=== PATIENT | female | born 1950 | race African-American/Black ===

== ENCOUNTER 2017-10-04 17:13 | Inpatient (IN) | payer MEDICAID ==
[~2017-10-04] VITALS: Ht 162.6 cm; Wt 56.4 kg
[2017-10-04] MEDS: traZODone 50 MG TAB PO SCH (00:20)
[~2017-10-04 17:13] MED LIST: ACET-2619 PO; ACET-8386 PO; ALPR0.5T2 PO; ASCO500T45 PO; ASPI325E46 PO; ASPI81EC97 PO; ATRN INH; Acetaminophen PO; BACTO TOP; CARI350T34 PO; COL250 PO; CYPR4TAB PO; DIAZ5TAB13 PO; Dressing, Gauze TP; ELA50 PO; FAMO-90 PO; FERR-193 PO; FOLI1TAB19 PO; IPRA3AMP IH; LEVO5SOL4 IV; MSCON15 PO; ONDA2SOL80 IVP; OXYC1TAB PO; PRAV20TA2 PO; PYRI25TA4 PO; PZA500 PO; SIMV10TA6 PO
[2017-10-04 17:14] VITALS: BP 116/72
--- NOTE | 2017-10-04 17:23 | NUR ---
PT TAKEN IN WHEELCHAIR TO BED 1
[2017-10-04] MEDS ORDERED: ACETAMIN/CODEINE 120/12MG-5ML 5 ML UDC PO ONE (17:35)
[2017-10-04] MEDS ORDERED: KETOROLAC 30 MG/ML VIAL IVP ONE (17:35)
[2017-10-04] MEDS ORDERED: ALBUTEROL SULFATE/IPRATROPIU 3 ML SOL IH ONE (17:40)
[2017-10-04] MEDS ORDERED: LEVOFLOXACIN 750 MG/D5W PREMIX 150 ML IV ONE (18:20)
[2017-10-04] MEDS: NACL 0.9% 1,000 ML IV SCH (18:22)
[2017-10-04] MEDS ORDERED: ACETAMINOPHEN 325 MG TAB PO PRN (18:25)
[2017-10-04] MEDS ORDERED: NITROGLYCERIN 0.4 MG TAB SL PRN (18:35)
[2017-10-04] MEDS ORDERED: LEVOFLOXACIN 750 MG/D5W PREMIX 150 ML IV SCH (18:35)
[2017-10-04] MEDS ORDERED: ALBUTEROL SULFATE/IPRATROPIU 3 ML SOL IH PRN (18:35)
[2017-10-04] MEDS ORDERED: CLINDAMYCIN 600 MG in DEXTROSE 5% 50 ML IV SCH (18:35)
[2017-10-04 18:46] LABS: BASOPHILS # (AUTO) 0.9 K/uL (0.00-0.22); WHITE BLOOD COUNT (AUTO) 14.4 K/uL (4.8-10.8)
[2017-10-04 18:52] LABS: EOSINOPHILS # (AUTO) 0.3 K/uL (0-0.4); HEMATOCRIT 34.4 % (36-48); HEMOGLOBIN 11.3 g/dL (12.0-16.0); LYMPHOCYTES # (AUTO) 1.5 K/uL (2.5-16.5); MEAN CORPUSCULAR HEMOGLOBIN 30 pg (27-31); MEAN CORPUSCULAR HGB CONC 33 g/dL (33-37); MEAN CORPUSCULAR VOLUME 91 fL (80-94); MONOCYTES # (AUTO) 0.8 K/uL (0.8-1.0); NEUTROPHILS # (AUTO) 10.9 K/uL (1.8-7.7); PLATELET COUNT (AUTO) 275 K/uL (140-450); RED CELL DISTRIBUTION WIDTH 13.1 % (11.6-13.7)
[2017-10-04 19:02] LABS: ALBUMIN 2.7 g/dL (3.4-5.0); ANION GAP 14.3 (8-16); CREATININE 0.8 mg/dL (0.6-1.3); POTASSIUM 3.3 mmol/L (3.5-5.1); TOTAL BILIRUBIN 0.5 mg/dL (0.0-1.0)
--- NOTE | 2017-10-04 19:13 | NUR ---
DR MURPHY AT BEDSIDE AT THIS TIME SPOKE WITH PT AFTER TO TRANSFER TO ROOM O2 AT 88 3L PLACED AT 95 POST N/C
[2017-10-04 19:33] LABS: PROTHROMBIN TIME 12.4 secs (10.8-13.4)
[2017-10-04] MEDS ORDERED: methylPREDNISolone SS 125 MG/2 ML VIAL IVP SCH (19:35)
[2017-10-04] MEDS ORDERED: POTASSIUM CHLORIDE 10 MEQ TABER PO ONE (19:45)
[2017-10-04 19:47] LABS: FREE T4 (FREE THYROXINE) 1.53 ng/dL (0.76-1.46); MAGNESIUM 1.8 mg/dL (1.8-2.4); PHOSPHORUS 2.4 mg/dL (2.5-4.9); THYROID STIMULATING HORMONE 0.75 uIU/mL (0.34-3.74)
--- NOTE | 2017-10-04 20:14 | NUR ---
PT TRANSFERED TO FLOOR AT THIS TIME REPORT OFF TO BETY COSBY IV INTACT FLUSHING WELL WITH LEVAQUIN GOING FLOOR NURSE ALLISON TO START CLEOCIN WELL GIVEN SOLUMEDRAOL. ALSO INFORMED THAT FAMILY CANT REMEMBER ALL MEDICATION AT HOME SON TO BRING DRUG LIST TO FLOOR TONIGHT SO MEDICATION REC NEEDS TO BE COMPLETED.
[2017-10-04 20:15] VITALS: BP 103/83
--- NOTE | 2017-10-04 20:15 | NUR ---
PT CAME IN VIA GURCHANCE, RECEIVED REPORT FROM DAY SHIFT ER NURSE, PT IS A/OX4, ON 3L O2 VIA NASAL CANNULA. 20G IV TO LEFT WRIST. PT AMBULATES AT HOME WITH WALKER. PT HAS ERYTHEMA WITH BUMPS ON LEFT AND RIGHT BUTTOCKS, AND PETECHIAE-LIKE ERYTHEMA AT CHEST, PICTURES TAKEN. MRSA SWAB OBTAINED AND SENT TO LAB. UPDATED BOARD. VITAL SIGNS WITHIN NORMAL LIMITS. PT IN STABLE CONDITION, NO SIGNS OF DISTRESS NOTED. BED IN LOWEST POSITION, CALL LIGHT WITHIN REACH. WILL CONTINUE TO MONITOR.
[2017-10-04] MEDS ORDERED: MAG SULF 2000 MG/WATER PREMIX 50 ML IV SCH (20:20)
[2017-10-04] MEDS ORDERED: POTASSIUM CHLORIDE 10 MEQ TABER PO SCH (20:25)
[2017-10-04] MEDS: ALBUTEROL SULFATE/IPRATROPIU 3 ML SOL IH SCH (20:37)
[2017-10-04] MEDS: ATORVASTATIN 20 MG TAB PO SCH (21:00)
[2017-10-04] MEDS: METOPROLOL 25 MG TAB PO SCH (21:00)
[2017-10-04] MEDS ORDERED: CLINDAMYCIN 600 MG/4 ML VIAL ONE (21:21)
[2017-10-04] MEDS: guaiFENesin 600 MG TABER PO SCH (21:52)
[2017-10-04] MEDS: HYDROcodone/APAP 7.5/325 MG 1 TAB PO PRN (21:54)
[2017-10-04] MEDS: DOCUSATE SODIUM 100 MG GELCAP PO SCH (21:56)
--- NOTE | 2017-10-04 21:56 | NUR ---
ADMINISTERED SCHEDULED MEDICATIONS, NORCO FOR PAIN AND ZOFRAN FOR NAUSEA, PT TOLERATED WELL. PT IN STABLE CONDITION, NO SIGNS OF DISTRESS NOTED. BED IN LOWEST POSITION, CALL LIGHT WITHIN REACH. WILL CONTINUE TO MONITOR.
[2017-10-04] MEDS: ONDANSETRON 4 MG/2 ML VIAL IVP PRN (21:57)
[2017-10-04] MEDS ORDERED: DOCU-299 PO (22:30)
[2017-10-04] MEDS ORDERED: VITD1000 PO (22:30)
[2017-10-04] MEDS ORDERED: MSCON15 PO (22:30)
[2017-10-04] MEDS ORDERED: ELA50 PO ×2 (22:30→22:39)
[2017-10-04] MEDS ORDERED: TRAZ-286 PO (22:38)
[2017-10-05] VITALS: BP 101/55
--- NOTE | 2017-10-05 00:25 | NUR ---
ADMINISTERED SLEEPING MEDICATION, PT TOLERATED WELL. VITAL SIGNS WITHIN NORMAL LIMITS. PT IN STABLE CONDITION, NO SIGNS OF DISTRESS NOTED. BED IN LOWEST POSITION, CALL LIGHT WITHIN REACH. WILL CONTINUE TO MONITOR.
[2017-10-05 04:00] VITALS: BP 105/60
--- NOTE | 2017-10-05 04:00 | NUR ---
VITAL SIGNS WITHIN NORMAL LIMITS. PT IN STABLE CONDITION, NO SIGNS OF DISTRESS NOTED. BED IN LOWEST POSITION, CALL LIGHT WITHIN REACH. WILL CONTINUE TO MONITOR.
[2017-10-05] MEDS: NACL 0.9% 1,000 ML IV SCH ×2 (05:24→20:11)
[2017-10-05] MEDS: ONDANSETRON 4 MG/2 ML VIAL IVP PRN ×3 (05:35→20:57)
[2017-10-05] MEDS: HYDROcodone/APAP 7.5/325 MG 1 TAB PO PRN ×2 (05:35→14:32)
--- NOTE | 2017-10-05 05:35 | NUR ---
ADMINISTERED PAIN AND NAUSEA MEDICATION, PT TOLERATED WELL. PT IN STABLE CONDITION, NO SIGNS OF DISTRESS NOTED. BED IN LOWEST POSITION, CALL LIGHT WITHIN REACH. WILL CONTINUE TO MONITOR.
[2017-10-05] MEDS ORDERED: methylPREDNISolone SS 125 MG/2 ML VIAL IVP SCH ×2 (06:00→07:00)
[2017-10-05] MEDS ORDERED: BENZONATATE 100 MG CAPLF PO PRN (06:05)
[2017-10-05 06:34] LABS: BASOPHILS # (AUTO) 0.1 K/uL (0.00-0.22); BASOPHILS % (AUTO) 0.9 % (0.0-2.0); EOSINOPHILS # (AUTO) 0.1 K/uL (0-0.4); EOSINOPHILS % (AUTO) 0.8 % (0.0-4.0); HEMATOCRIT 34.6 % (36-48); HEMOGLOBIN 11.2 g/dL (12.0-16.0); LYMPHOCYTES # (AUTO) 0.7 K/uL (2.5-16.5); LYMPHOCYTES % (AUTO) 5.4 % (20.5-51.1); MEAN CORPUSCULAR HEMOGLOBIN 30 pg (27-31); MEAN CORPUSCULAR HGB CONC 32 g/dL (33-37); MEAN CORPUSCULAR VOLUME 93 fL (80-94); MONOCYTES # (AUTO) 0.1 K/uL (0.8-1.0); MONOCYTES % (AUTO) 0.4 % (1.7-9.3); NEUTROPHILS # (AUTO) 11.7 K/uL (1.8-7.7); NEUTROPHILS % (AUTO) 92.5 % (42.2-75.2); PLATELET COUNT (AUTO) 263 K/uL (140-450); RED BLOOD CELL COUNT(AUTO) 3.72 MIL/uL (4.20-5.40); RED CELL DISTRIBUTION WIDTH 12.8 % (11.6-13.7); WHITE BLOOD COUNT (AUTO) 12.7 K/uL (4.8-10.8)
[2017-10-05] MEDS: ALBUTEROL SULFATE/IPRATROPIU 3 ML SOL IH SCH ×4 (07:09→22:58)
[2017-10-05 07:13] LABS: ANION GAP 13.3 (8-16); CARBON DIOXIDE 26.6 mmol/L (21-32); CREATININE 0.7 mg/dL (0.6-1.3); POTASSIUM 4.9 mmol/L (3.5-5.1)
[2017-10-05 07:17] LABS: MAGNESIUM 2.5 mg/dL (1.8-2.4); PHOSPHORUS 3.1 mg/dL (2.5-4.9)
--- NOTE | 2017-10-05 07:40 | NUR ---
ENDORSED PT IN STABLE CONDITION TO DAY SHIFT NURSE FOR CONTINUITY OF CARE.
--- NOTE | 2017-10-05 07:41 | NUR ---
RECEIVED REPORT FROM CASEY SAW OPERATOR RN. PATIENT IS AAOX4, NO SIGNS AND SYMPTOMS OF ACUTE RESPIRATORY DISTRESS NOTED AT THIS TIME. HAS NASAL CANNULA AT 3LPM. PATIENT HAS PETECHIAE LIKE ERYTHEMA ON CHEST, AND ERYTHEMA WITH BUMPS ON RIGHT AND LEFT BUTTOCKS. AMBULATES WITH WALKER AT HOME. BEDSIDE COMMODE PRESENT IN ROOM AND NEXT TO BED. HAS IV TO LEFT WRIST 22G, INFUSING NS AT 50 ML/HR. SITE IS CLEAN, DRY, PATENT AND INTACT. DISCUSSED PLAN OF CARE WITH PATIENT AND SHE VERBALIZED UNDERSTANDING. BED IS IN LOWEST POSITION, SIDE RAILS UP X2, CALL LIGHT WITHIN REACH. WILL CONTINUE TO MONITOR.
[2017-10-05 08:00] VITALS: BP 99/62
--- NOTE | 2017-10-05 08:35 | NUR ---
PATIENT HAS BEEN SCREENED AND CATEGORIZED MODERATE NUTRITION RISK. PATIENT WILL BE SEEN WITHIN 3-5 DAYS OF ADMISSION. 10/06/17-10/08/[address]
[2017-10-05] MEDS: guaiFENesin 600 MG TABER PO SCH ×2 (08:57→20:28)
[2017-10-05] MEDS: FERROUS SULFATE 325 MG TABEC PO SCH (08:57)
[2017-10-05] MEDS: SODIUM PHOS / POTASSIUM PHOS 1 PKT PDR PO SCH (08:58)
[2017-10-05] MEDS: LACTOBACILLUS RHAMNOSUS GG 1 EACH CAP PO SCH (08:58)
[2017-10-05] MEDS: ASPIRIN 81 MG TAB.CHEW PO SCH (08:58)
[2017-10-05] MEDS ORDERED: DOCUSATE SODIUM 100 MG GELCAP PO SCH (09:00)
[2017-10-05] MEDS ORDERED: LISINOPRIL 5 MG TAB PO SCH (09:00)
[2017-10-05] MEDS: METOPROLOL 25 MG TAB PO SCH ×2 (09:00→20:38)
[2017-10-05] MEDS: DOCUSATE SODIUM 100 MG GELCAP PO SCH ×2 (09:01→20:24)
[2017-10-05] MEDS: FOLIC ACID 1 MG TAB PO SCH (09:01)
[2017-10-05] MEDS: MORPHINE TAB ER 15 MG TABER PO SCH ×2 (09:02→20:29)
[2017-10-05] MEDS: CHOLECALCIFEROL 1,000 IU TAB PO SCH (09:02)
--- NOTE | 2017-10-05 10:41 | NUR ---
CM NOTE INITIAL REVIEW FAXED TO [facility] [phone] PH# [phone] AND TO [facility] [phone] SWAPNIL PH# [phone]
[2017-10-05 12:00] VITALS: BP 108/51
[2017-10-05] MEDS: methylPREDNISolone SS 125 MG/2 ML VIAL IVP SCH ×2 (12:51→20:23)
--- NOTE | 2017-10-05 13:05 | NUR ---
PT SLEEPING WITH NO SIGNS OF DISTRESS NOTED AT MORNING BREATHING TX PT STATED THAT IF SHE WAS SLEEPIN AT 1300 TX NOT TO WAKE HER NO HHN GIVEN
[2017-10-05] MEDS ORDERED: SIMETHICONE 40 MG/0.6 ML PO PRN (13:15)
--- NOTE | 2017-10-05 14:59 | NUR ---
CM NOTE RECEIVED FAX FROM [facility] [place] [facility]# [id number] IDENTIFICATION NUMBER [id number] STATING THAT [facility] IS NOT RESPONSIBLE FOR PROVIDING AUTHORIZATION OR PAYMENT FOR SERVICES PROVIDED TO MEMBER AT AN OUT OF AREA FACILITY, OUT OF AREA DEFINED OUTSIDE OF [facility]. SAFETY DEPOSIT CLERK RADHA MADE AWARE.
[2017-10-05 16:00] VITALS: BP 112/57
[2017-10-05] MEDS ORDERED: traZODone 50 MG TAB PO SCH (17:00)
[2017-10-05] MEDS: traZODone 50 MG TAB PO SCH (17:03)
[2017-10-05] MEDS: AMITRIPTYLINE 50 MG TAB PO SCH (17:04)
--- NOTE | 2017-10-05 19:22 | NUR ---
ENDORSED PATIENT TO TICKET SALES SUPERVISOR RN FOR CONTINUITY OF CARE. PATIENT IN STABLE CONDITION.
--- NOTE | 2017-10-05 19:25 | NUR ---
RECEIVED PT AAOX4, VITAL SIGNS STABLE, NO SOB NOTED, COMPLAINING OF UPPER CHEST PAIN AGGRAVATED BY COUGHING, WILL MEDICATE PRN, REINFORCE TO BE ON O2 VIA NASAL CANNULA AT ALL TIMES DUE TO DESAT WHEN ON ROOM AIR, VERBALIZED UNDERSTANDING, PLAN OF CARE DISCUSSED, SAFETY MEASURES IN PLACE, ON CONTACT ISOLATION FOR HX OF MRSA NARES, CALL LIGHT WITHIN REACH.
[2017-10-05 20:00] VITALS: BP 110/60
[2017-10-05] MEDS: ATORVASTATIN 20 MG TAB PO SCH (20:28)
--- NOTE | 2017-10-05 20:30 | NUR ---
AMBULATED TO BR WITH MINIMAL ASSIST, VOIDED FREELY, URINE SENT TO LAB FOR TEST, BED LINEN CHANGED BY ROSELYN MCCALL, DUE MEDS ADMINISTERED, ALL NEEDS ATTENDED, IVF INFUSING WELL.
--- NOTE | 2017-10-05 21:00 | NUR ---
PT COMPLAINING OF NAUSEA BUT NO VOMITING, MEDICATED WITH ZOFRAN IVP, MONITORED CLOSELY.
[2017-10-05 22:07] LABS: APPEARANCE,URINE CLEAR (CLEAR); BILIRUBIN,URINE NEGATIVE (NEGATIVE); BLOOD, URINE NEGATIVE (NEGATIVE); COLOR,URINE YELLOW (YELLOW); LEUKOCYTE ESTERASE ,URINE NEGATIVE (NEGATIVE); NITRITE, URINE NEGATIVE (NEGATIVE); UGLUCOSE NEGATIVE (NEGATIVE)
[2017-10-05] MEDS: LEVOFLOXACIN 500 MG/D5W PREMIX 100 ML IV SCH (23:06)
[2017-10-05] MEDS: PROMETH/CODEINE 6.25-10MG/5ML 5 ML UDC PO PRN (23:07)
--- NOTE | 2017-10-05 23:10 | NUR ---
PT AWAKE, BREATHING TX GIVEN BY ROBERT RT, VITAL SIGNS STABLE, NO SOB NOTED, MEDICATED PRN FOR COUGH, LEVAQUIN IVPB ADMINISTERED, CONTINUE TO MONITOR CLOSELY.
[2017-10-06] VITALS: BP 103/66
--- NOTE | 2017-10-06 01:00 | NUR ---
PT COMPLAINING OF PAIN TO THE IV SITE, NEW IV LINE INSERTED TO RT HAND WITH GOOD BLOOD RETURN, SITE WRAPPED WITH KERLIX, RESUMED IVF, MONITORED CLOSELY.
[2017-10-06] MEDS: NACL 0.9% 1,000 ML IV SCH (01:24)
[2017-10-06] MEDS: ONDANSETRON 4 MG/2 ML VIAL IVP PRN (03:30)
--- NOTE | 2017-10-06 03:35 | NUR ---
PT USES BEDSIDE COMMODE, VOIDED FREELY, COMPLAINING OF NAUSEA, NO VOMITING NOTED, VITAL SIGNS STABLE, MEDICATED PRN WITH ZOFRAN IVP, MONITORED CLOSELY.
[2017-10-06] MEDS: HYDROcodone/APAP 7.5/325 MG 1 TAB PO PRN (03:50)
[2017-10-06 04:00] VITALS: BP 110/74
[2017-10-06] MEDS ORDERED: methylPREDNISolone SS 40 MG/ML VIAL ONE (05:28)
[2017-10-06] MEDS: methylPREDNISolone SS 40 MG/ML VIAL IVP SCH ×3 (05:32→21:26)
--- NOTE | 2017-10-06 05:40 | NUR ---
PT AWAKE, DUE SOLUMEDROL IVP GIVEN, PT COUGHING OUT YELLOWISH BROWN SPUTUM, SPECIMEN COLLECTED AND SENT TO LAB, DR AIKEN ORDERED SPUTUM CULTURE, AM CARE DONE, ALL NEEDS ATTENDED, NO DISTRESS AT THIS TIME, MONITORED CLOSELY.
--- NOTE | 2017-10-06 07:26 | NUR ---
PT AWAKE, NO DISTRESS NOTED, REPORT GIVEN TO BETY BREWER FOR CONTINUITY OF CARE.
[2017-10-06 08:00] VITALS: BP 118/60
[2017-10-06] MEDS: guaiFENesin 600 MG TABER PO SCH ×2 (09:28→21:27)
[2017-10-06] MEDS: FERROUS SULFATE 325 MG TABEC PO SCH (09:28)
[2017-10-06] MEDS: LACTOBACILLUS RHAMNOSUS GG 1 EACH CAP PO SCH (09:29)
[2017-10-06] MEDS: DOCUSATE SODIUM 100 MG GELCAP PO SCH ×2 (09:29→21:26)
[2017-10-06] MEDS: FOLIC ACID 1 MG TAB PO SCH (09:29)
[2017-10-06] MEDS: CHOLECALCIFEROL 1,000 IU TAB PO SCH (09:29)
[2017-10-06] MEDS: SODIUM PHOS / POTASSIUM PHOS 1 PKT PDR PO SCH (09:30)
[2017-10-06] MEDS: MORPHINE TAB ER 15 MG TABER PO SCH ×2 (09:30→18:27)
[2017-10-06] MEDS: SENNA 8.6 MG TAB PO SCH (09:30)
[2017-10-06] MEDS: METOPROLOL 25 MG TAB PO SCH (09:30)
[2017-10-06] MEDS: ASPIRIN 81 MG TAB.CHEW PO SCH (09:30)
[2017-10-06] MEDS: PROMETH/CODEINE 6.25-10MG/5ML 5 ML UDC PO PRN (10:21)
[2017-10-06] MEDS ORDERED: ACETYLCYSTEINE 20% (200 MG/ML) 200 MG/ML VIAL PO SCH (10:45)
[2017-10-06] MEDS ORDERED: ACETYLCYSTEINE 10% (100 MG/ML) 100 MG/ML VIAL INH SCH (10:53)
--- NOTE | 2017-10-06 11:15 | NUR ---
WOUND EVALUATION NOTE: REASON FOR WOUND EVALUATION: BLISTERS SKIN ASSESSMENT DONE ON THIS 66 Y/O FEMALE PATIENT ADMITTED TO [facility], WITH INITIAL DIAGNOSIS OF SOB AND CHEST PAIN. PAST MEDICAL HISTORY INCLUDE ASTHMA AND ARTHRITIS. ALL ABOVE INFORMATION WAS OBTAINED FROM THE ADMISSION H&P. LABS ARE WBC 12.7, H/H 11.2/34.6, GLUCOSE 127, ALBUMIN 2.7, PT/INR 12.4/1.23 AND PTT 27.6. SKIN WARM TO TOUCH WNL, TOENAILS ARE SLIGHTLY THICKENED, NO EDEMA, BLE WITH NO HAIR GROWTH AND NORMAL PEDAL PULSES.INITIAL PLAN OF CARE DISCUSSED WITH PRIMARY RN AND PT. PT VERBALIZES UNDERSTAND. INTEGUMENTARY: BLE DRY SKIN L/R BUTTOCKS DRY BLISTERS WITH SKIN INTACT LARGEST MEASURES 1X1CM ON RIGHT BUTTOCK AND SMALLEST 0.3X0.5 CM ON LEFT BUTTOCK. RECOMMENDATIONS: -APPLY BODY MOISTURIZATION TO BLE DAILY -CLEANSE L/R BUTTOCKS DRY BLISTERS WITH SOAP AND WATER , PAT DRY, APPLY OPTIFORM CHANGE Q7 DAYS AND PRN -TURN AND REPOSITION PATIENT Q2H -ASSESS AND MONITOR SKIN CONDITION DURING POSITION CHANGE, PLEASE PAY ATTENTION TO R/L BUTTOCKS -OFFLOAD BILATERAL HEELS BY PLACING PILLOWS UNDER CALVES AT ALL TIMES, UNLESS OTHERWISE CONTRAINDICATED -KEEP SKIN CLEAN AND DRY AT ALL TIMES. RECOMMENDATIONS DISCUSSED WITH PRIMARY RN WILL FOLLOW UP PATIENT Q 7-10 DAYS AND PRN. PLEASE CONTACT WOUND CARE NURSE FOR ANY QUESTIONS AND CHANGES IN WOUND CONDITION.
--- NOTE | 2017-10-06 12:36 | NUR ---
CM NOTE CONCURRENT REVIEW FAXED TO [facility] [phone] # [phone]
[2017-10-06 12:42] LABS: HEMATOCRIT 35.8 % (36-48); HEMOGLOBIN 11.3 g/dL (12.0-16.0); MEAN CORPUSCULAR HEMOGLOBIN 30 pg (27-31); MEAN CORPUSCULAR HGB CONC 32 g/dL (33-37); MEAN CORPUSCULAR VOLUME 93 fL (80-94); PLATELET COUNT (AUTO) 363 K/uL (140-450); RED BLOOD CELL COUNT(AUTO) 3.84 MIL/uL (4.20-5.40); RED CELL DISTRIBUTION WIDTH 12.8 % (11.6-13.7); WHITE BLOOD COUNT (AUTO) 25.6 K/uL (4.8-10.8)
[2017-10-06 12:47] LABS: ANION GAP 15.6 (8-16); CARBON DIOXIDE 25.1 mmol/L (21-32); CREATININE 0.8 mg/dL (0.6-1.3); POTASSIUM 3.7 mmol/L (3.5-5.1)
[2017-10-06 13:00] LABS: LYMPHOCYTES % (MANUAL) 9 % (20-46); MONOCYTES % (MANUAL) 6 % (5-12)
[2017-10-06] MEDS: ALBUTEROL SULFATE/IPRATROPIU 3 ML SOL IH SCH ×2 (13:00→18:47)
--- NOTE | 2017-10-06 13:18 | NUR ---
PT DID NOT WANT BREATHING TX AT THIS TIME PT WANTS TO TAKE A SHOWER. WILL CHECK AT A LATER TIME. PT NOT SOB AND NOT IN RESPIRATORY DISTRESS.
[2017-10-06 16:00] VITALS: BP 131/68
[2017-10-06] MEDS ORDERED: LORazepam 2 MG/ML VIAL IVP SCH (16:23)
[2017-10-06] MEDS ORDERED: SODIUM PHOSPHATE 118 ML ENEM RC SCH (17:12)
[2017-10-06] MEDS ORDERED: CLIN300C2 PO (17:22)
[2017-10-06] MEDS ORDERED: GUAI-791 PO (17:22)
[2017-10-06] MEDS ORDERED: ASPI81CT95 PO (17:22)
[2017-10-06] MEDS ORDERED: LACT10CA PO (17:22)
[2017-10-06] MEDS ORDERED: LEVO750T2 PO (17:22)
[2017-10-06] MEDS ORDERED: SENN-89 PO (17:22)
[2017-10-06] MEDS: AMITRIPTYLINE 50 MG TAB PO SCH (18:26)
[2017-10-06] MEDS: traZODone 50 MG TAB PO SCH (18:26)
[2017-10-06] MEDS: ACETYLCYSTEINE 10% (100 MG/ML) 100 MG/ML VIAL INH SCH (18:52)
--- NOTE | 2017-10-06 18:52 | NUR ---
2ML 10% MUCOMYST WAS ADMINISTERED, WAS UNABLE TO SCAN BARCODE MEDICATION FROM BAG OR SYRINGE
--- NOTE | 2017-10-06 19:30 | NUR ---
RECEIVED REPORT FROM DAY SHIFT RN, PATIENT IS EATING DINNER IN THE BED, NO S/S OF DISTRESS NOTED, RESPIRATION EVEN AND UNLABORED, ON ROOM AIR. VITAL SIGNS STABLE, DENIES PAIN AT THIS TIME. PLAN OF CARE DISCUSSED, PATIENT VERBALIZED UNDERSTANDING, CALL LIGHT WITHIN REACH, SAFETY MEASURE ENSURED, WILL CONTINUE TO MONITOR.
[2017-10-06] MEDS: guaiFENesin/CODEINE 100/10MG 5 ML UDC PO PRN (21:27)
--- NOTE | 2017-10-06 21:53 | NUR ---
DUE MEDICATION GIVEN, PATIENT TOLERATED WELL. NO S/S OF DISTRESS NOTED, RESPIRATION EVEN AND UNLABORED, CALL LIGHT WITHIN REACH, SAFETY MEASURE ENSURED, WILL CONTINUE TO MONITOR.
[2017-10-06] MEDS: LEVOFLOXACIN 500 MG/D5W PREMIX 100 ML IV SCH (23:00)
--- NOTE | 2017-10-06 23:07 | NUR ---
LEVAQUIN STARTED, PATIENT TOLERATED WELL. NO S/S OF DISTRESS NOTED, RESPIRATION EVEN AND UNLABORED, ON ROOM AIR, CALL LIGHT WITHIN REACH, SAFETY MEASURE ENSURED, WILL CONTINUE TO MONITOR.
[2017-10-07] VITALS: BP 113/73
--- NOTE | 2017-10-07 00:27 | NUR ---
MADE SMALL AMOUNT OF BOWEL MOVEMENT, NO S/S OF DISTRESS NOTED, RESPIRATION EVEN AND UNLABORED, CALL LIGHT WITHIN REACH, SAFETY MEASURE ENSURED, WILL CONTINUE TO MONITOR.
[2017-10-07] MEDS: guaiFENesin/CODEINE 100/10MG 5 ML UDC PO PRN ×3 (03:27→14:26)
--- NOTE | 2017-10-07 03:29 | NUR ---
ASKED FOR COUGHING MEDICATION, MEDICATION GIVEN ORDERED, PATIENT TOLERATED WELL. NO S/S OF DISTRESS NOTED, RESPIRATION EVEN AND UNLABORED, ON ROOM AIR, O2SAT 93%. CALL LIGHT WITHIN REACH, SAFETY MEASURE ENSURED, WILL CONTINUE TO MONITOR.
[2017-10-07] MEDS: MORPHINE TAB ER 15 MG TABER PO SCH (05:13)
--- NOTE | 2017-10-07 05:14 | NUR ---
PATIENT IS SLEEPING, NO S/S OF DISTRESS NOTED, RESPIRATION EVEN AND UNLABORED, CALL LIGHT WITHIN REACH, SAFETY MEASURE ENSURED, WILL CONTINUE TO MONITOR.
[2017-10-07] MEDS: ALBUTEROL SULFATE/IPRATROPIU 3 ML SOL IH SCH ×2 (07:01→13:58)
[2017-10-07] MEDS: ACETYLCYSTEINE 10% (100 MG/ML) 100 MG/ML VIAL INH SCH (07:25)
--- NOTE | 2017-10-07 07:30 | NUR ---
ENDORSED PLAN OF CARE TO DAY SHIFT RN, PATIENT RESTING IN BED, IN STABLE CONDITION.
[2017-10-07 07:56] LABS: BASOPHILS # (AUTO) 0.1 K/uL (0.00-0.22); BASOPHILS % (AUTO) 0.3 % (0.0-2.0); EOSINOPHILS % (AUTO) 0.1 % (0.0-4.0); HEMOGLOBIN 10.9 g/dL (12.0-16.0); LYMPHOCYTES # (AUTO) 1.1 K/uL (2.5-16.5); LYMPHOCYTES % (AUTO) 5.6 % (20.5-51.1); MEAN CORPUSCULAR HEMOGLOBIN 31 pg (27-31); MEAN CORPUSCULAR HGB CONC 33 g/dL (33-37); MEAN CORPUSCULAR VOLUME 93 fL (80-94); MONOCYTES # (AUTO) 0.3 K/uL (0.8-1.0); MONOCYTES % (AUTO) 1.6 % (1.7-9.3); NEUTROPHILS # (AUTO) 17.8 K/uL (1.8-7.7); NEUTROPHILS % (AUTO) 92.4 % (42.2-75.2); PLATELET COUNT (AUTO) 398 K/uL (140-450); RED BLOOD CELL COUNT(AUTO) 3.54 MIL/uL (4.20-5.40); RED CELL DISTRIBUTION WIDTH 12.8 % (11.6-13.7)
[2017-10-07 08:00] VITALS: BP 115/61
--- NOTE | 2017-10-07 08:42 | NUR ---
CM NOTE CONCURRENT REVIEW FAXED TO [facility] [phone] # [phone]
[2017-10-07 08:53] LABS: CARBON DIOXIDE 26.8 mmol/L (21-32); CREATININE 0.8 mg/dL (0.6-1.3); POTASSIUM 4.8 mmol/L (3.5-5.1)
[2017-10-07] MEDS: DOCUSATE SODIUM 100 MG GELCAP PO SCH (09:00)
[2017-10-07] MEDS: SENNA 8.6 MG TAB PO SCH (09:00)
[2017-10-07] MEDS ORDERED: [UNRECOGNIZED DRUG - CODE] MC (09:02)
[2017-10-07] MEDS: SODIUM PHOS / POTASSIUM PHOS 1 PKT PDR PO SCH (09:02)
[2017-10-07] MEDS: guaiFENesin 600 MG TABER PO SCH (09:02)
[2017-10-07] MEDS: FOLIC ACID 1 MG TAB PO SCH (09:02)
[2017-10-07] MEDS: ASPIRIN 81 MG TAB.CHEW PO SCH (09:02)
[2017-10-07] MEDS: FERROUS SULFATE 325 MG TABEC PO SCH (09:02)
[2017-10-07] MEDS: LACTOBACILLUS RHAMNOSUS GG 1 EACH CAP PO SCH (09:03)
[2017-10-07] MEDS: CHOLECALCIFEROL 1,000 IU TAB PO SCH (09:03)
--- NOTE | 2017-10-07 09:15 | NUR ---
I met with patient to confirm/clarify Patient's concerns she express to MD. in regards 02. Patient stated " No I do not have oxygen, I was talking about a Nebulizer" Per patient she had a Nebulizer years ago, stop using it and due to a recent move to her sons' home Patient lost it and no longer has one. Due to her current diagnosis Patient is on need of a Nebulizer. MD has made recommendation/order. claim manager will follow up on orders.
[2017-10-07 09:27] LABS: WHITE BLOOD COUNT (AUTO) 19.3 K/uL (4.8-10.8)
--- NOTE | 2017-10-07 10:57 | NUR ---
CM NOTE FAXED NEBULIZER ORDER TO [facility] [phone] # [phone]. PER FRANCISCA OF [facility] PH# [phone], THE ASSIGNED HANDKERCHIEF FOLDER ANISH Buenrostro IS IN TRAINING AND SHE CANNOT RELEASE THE CM'S CONTACT NUMBER. PER FRANCISCA, SHE WILL E-MAIL THE ASSIGNED CM TO INFORM HER OF THE ORDER FOR NEBULIZER FOR HOME AND THE DISCHARGE ORDER FOR THE PATIENT TODAY. I ALSO INFORMED FRANCISCA OF THE PATIENT'S CHANGE IN ADDRESS AND SHE SAID TO HAVE THE PATIENT CALL [facility] CUSTOMER SERVICE TO INFORM THEM OF HER NEW ADDRESS BECAUSE THAT'S THE ONLY WAY THEY CAN CHANGE IT THROUGH THEIR SYSTEM. ELOISE BRUNO.
--- NOTE | 2017-10-07 11:51 | NUR ---
ALONSO REINA RECEIVED A CALL FROM LAURA OF [facility]. PER LAURA HE IS WORKING WITH ALONSO Buenrostro OF [facility]. WHEN ASKED ABOUT HIS CONTACT NUMBER HE SAID HE CANNOT DISCLOSE IT BUT HE WILL CALL BACK TO GIVE AN UPDATE REGARDING THE ORDER ON NEBULIZER. LAURA REQUESTED TO FAX AGAIN THE ORDER TO [facility] [phone] AND [phone]. FAXED NEBULIZER ORDER TO [facility] [phone] AND [phone]. Addendum: 10/07/17 at 1158 by Meliza Alanis CM PER HERNAN [facility]# [phone], PATIENT IS OUT OF AREA AND [facility] IS STILL RESPONSIBLE FOR PATIENT'S DISCHARGE NEEDS FOR THIS ADMISSION.
[2017-10-07 12:01] VITALS: BP 121/71
--- NOTE | 2017-10-07 14:20 | NUR ---
HHN GIVEN LATE PT EATING AND IN RESTROOM
--- NOTE | 2017-10-07 15:09 | NUR ---
ALONSO NOTE NO RETURN CALL RECEIVED FROM [facility]. CALLED [facility] TO FOLLOW UP. PER FRANCISCO OF [facility]# [phone] THE REQUEST FOR NEBULIZER HAS BEEN RECEIVED AND UNDER REVIEW. NO DECISION AT THIS TIME. ALONSO Buenrostro Addendum: 10/07/17 at 1520 by Meliza Alanis CM JOSÉ LUIS BRUNO
[2017-10-07 16:00] VITALS: BP 126/74
[2017-10-07] MEDS: traZODone 50 MG TAB PO SCH (17:08)
[2017-10-07] MEDS: AMITRIPTYLINE 50 MG TAB PO SCH (17:10)
--- NOTE | 2017-10-07 17:20 | NUR ---
DISCHARGE INSTRUCTIONS AND PRESCRIPTIONS GIVEN TO PT AND PT'S SON WALE, BOTH VERBALIZED UNDERSTANDING OF THE INSTRUCTIONS GIVEN AND THE NEED TO FOLLOW UP WITH DR. GRANADOS'S GROUP IN THE GIVEN SCHEDULE. PT REFUSED PHOTOS ON TAKING DISCHARGE PHOTOS ON HER BILATERAL BUTTOCKS (DRIED BLISTER), BOTH BLISTERS COVERED WITH OPTIFOAM, DRY AND INPLACE.
--- NOTE | 2017-10-07 17:30 | NUR ---
ARM BANDS AND IV REMOVED, CANNULA TIP INTACT.
--- NOTE | 2017-10-07 17:40 | NUR ---
PT WHEELED OUT TO THE PARKING LOT IN STABLE CONDITION, NO SOB NOTED. NO C/O PAIN AT THIS TIME. PT AWARE THE HER NEBULIZER WILL BE DELIVERED TO HER HOME ADDRESS OF HER INSURANCE APPROVES IT. PT IS D/C HOME WITH SON.
== END 2017-10-07 17:40 | disposition home or self-care (01) | DRG 720 ==
LOC: MED 17:13 → MTU 18:27
PROVIDERS: ADMIT Family Medicine Sports Medicine; ATTEND Family Medicine Sports Medicine
DX: A41.9 Sepsis, unspecified organism (principal); J96.01 Acute respiratory failure with hypoxia; J69.0 Pneumonitis due to inhalation of food and vomit; E87.1 Hypo-osmolality and hyponatremia; E83.39 Other disorders of phosphorus metabolism; M94.0 Chondrocostal junction syndrome [Tietze]; J44.1 Chronic obstructive pulmonary disease with (acute) exacerbation; E87.6 Hypokalemia; E78.5 Hyperlipidemia, unspecified; E05.90 Thyrotoxicosis, unspecified without thyrotoxic crisis or storm; M19.90 Unspecified osteoarthritis, unspecified site; E11.9 Type 2 diabetes mellitus without complications; Z88.1 Allergy status to other antibiotic agents; Z88.0 Allergy status to penicillin; Z91.040 Latex allergy status; Z91.030 Bee allergy status; Z90.89 Acquired absence of other organs; Z87.891 Personal history of nicotine dependence; Z90.49 Acquired absence of other specified parts of digestive tract
CPT/HCPCS: 36415; 71045; 74018; 80048; 80053; 81003; 82150; 83036; 83605; 83690; 83735; 83880; 84100; 84439; 84443; 84484; 85025; 85610; 85730; 87040; 87081; 87086; 87205; 87804; 93005; 94640; 99285; J1885; J1956; J2405; J2920; J2930; J3475; J3490; J7030; J7060; J7620; Q0092